=== PATIENT | female | born 1925 | race Caucasian/White ===

== ENCOUNTER 2016-07-20 16:02 | Emergency (ER) | payer MEDICARE, OTHER ==
[~2016-07-20] VITALS: Ht 165.1 cm; Wt 80.0 kg
[~2016-07-20 16:02] MED LIST: AMIODARONE 150 MG INJ ONE; EPINEPHrine 0.1 MG/ML SYG ONE; MAGNESIUM SULFATE 1 GM/100 ML D5W IVPB ONE; NA BICARBONATE 8.4% 50 ML SYG ONE
[2016-07-20 16:06] VITALS: Ht 165.1 cm; Wt 80.0 kg
[2016-07-20] MEDS ORDERED: SODIUM CHLORIDE 0.9% 1L BAG IV* STA (16:09)
[2016-07-20] MEDS ORDERED: NORepinephrine 8MG/250 ML (PMX 250 ML ONE (16:17)
[2016-07-20 16:41] LABS: ADD SCAN DIFF NO
[2016-07-20 16:43] LABS: ABNORMAL IP MESSAGE 1; HEMATOCRIT 31.2 % (37.0-47.0); HEMOGLOBIN 8.3 g/dl (12.0-16.0); MEAN CORPUSCULAR HEMOGLOBIN 24.4 pg (29.0-33.0); MEAN CORPUSCULAR HGB CONC 26.6 g/dl (32.0-37.0); MEAN CORPUSCULAR VOLUME 91.8 fl (82.0-101.0); PLATELET COUNT 68 10^3/UL (140-415); RED CELL DISTRIBUTION WIDTH 20.6 % (11.5-14.5); WHITE BLOOD COUNT 14.7 10^3/ul (4.8-10.8)
[2016-07-20] MEDS ORDERED: ATOR10TA65 PO (16:47)
[2016-07-20] MEDS ORDERED: PROPOFOL 100 ML IV STA (16:48)
[2016-07-20] MEDS ORDERED: DEXA4TAB PO (16:48)
[2016-07-20] MEDS ORDERED: FLUD0.1T10 PO (16:49)
--- NOTE | 2016-07-20 16:49 | RADRPT ---
PROCEDURE: XR Chest. CLINICAL INDICATION: Cough. Sepsis. TECHNIQUE: Single frontal view. COMPARISON: None. FINDINGS: The endotracheal tube is in satisfactory position with the tip 4 cm above the jean-claude. There is a le ft-sided dual lead permanent pacemaker with leads in the right atrium and right ventricle. There is extensive bilateral pulmonary airspace and interstitial disease consistent with pulmonary edema wit h right worse than left. The heart is mildly enlarged. There is calcification in the aorta consistent with atherosclerosis. There is no pleural effusion. There is no pneumothorax. IMPRESSION: 1. Endotracheal tube in satisfactory position. 2. Permanent pacemaker. 3. Pulmonary edema with right worse than left. 4. Mild cardiomegaly and atherosclerosis. RPTAT: QQ .Alexsander Eaton MD, MD Date Time Electronically viewed and signed by .Alexsander Eaton MD, on 07/20/2016 16:49 .R/
[2016-07-20] MEDS ORDERED: LORA0.5T PO (16:50)
[2016-07-20] MEDS ORDERED: KRIL500C PO (16:50)
[2016-07-20] MEDS ORDERED: MECL-77 PO (16:51)
[2016-07-20] MEDS ORDERED: METO-448 PO (16:51)
[2016-07-20] MEDS ORDERED: MIDO10TA PO (16:52)
[2016-07-20 16:53] LABS: INR 4.21; PROTIME 41.3 Sec (12.2-14.2); PT RATIO 3.2
[2016-07-20] MEDS ORDERED: MIRT7.5T8 PO (16:53)
[2016-07-20 16:54] LABS: ALBUMIN 3.2 g/dl (3.3-4.9); PARTIAL THROMBOPLASTIN TIME 52.9 Sec (25.0-35.0)
[2016-07-20] MEDS ORDERED: MULT-105 PO (16:54)
[2016-07-20 16:55] LABS: POTASSIUM 4.6 mmol/L (3.5-5.1)
[2016-07-20] MEDS ORDERED: WARF1TAB47 PO (16:55)
[2016-07-20] MEDS ORDERED: RANI150T5 PO (16:55)
[2016-07-20 16:57] LABS: BILIRUBIN,INDIRECT 0.1 mg/dl (0-1.1); BILIRUBIN,TOTAL 0.1 mg/dl (0.2-1.3); CREATININE 1.85 mg/dl (0.44-1.00)
[2016-07-20 16:58] LABS: ALBUMIN/GLOBULIN RATIO 0.8; CALCIUM 8.4 mg/dl (8.4-10.2); TOTAL PROTEIN 7.2 g/dl (6.1-8.1)
--- NOTE | 2016-07-20 17:09 | RADRPT ---
PROCEDURE: Noncontrast CT Head. CLINICAL INDICATION: Sepsis. TECHNIQUE: Noncontrast CT of the head was obtained. The administered radiation dose was CTDI vol = 42.02 mGy, DLP = 720.23 mGy-cm. One or more of the following dose reduction techniques were used: Au tomated exposure control, Adjustment of the mA and/or kV according to patient size, or Use of iterat morelia reconstruction technique. COMPARISON: There are no similar studies submitted for comparison. FINDINGS: There is mild to moderate generalized cerebral volume loss. There is mild periventricular hypoattenuation suggesting chronic microvascular ischemic changes. The re are chronic bilateral basal ganglia lacunar infarctions. There are mild to moderate vascular calc ifications within the intracranial carotid arteries. There is no loss of myles-white differentiation to suggest acute territorial infarction. There is no acute intracranial hemorrhage or extra-axial fluid collection. There is no mass effect. No midline shift is identified. The patient is status post bilateral lens surgery. There is minimal bilateral ethmoid sinus mucosal thickening. No destructive osseous lesion is identified. IMPRESSION: 1. No acute intracranial hemorrhage or extra-axial fluid collection. 2. Mild generalized cerebral volume loss. 3. Minimal chronic microvascular ischemic changes. 4. Chronic bilateral basal ganglia lacunar infarctions. Further findings as detailed above. RPTAT: PP .Juan Cesar MD, Date Time Electronically viewed and signed by .Juan Cesar MD, on 07/20/2016 17:09 .F/
[2016-07-20 17:12] LABS: TROPONIN-I 3.52 ng/ml (0.00-0.12)
[2016-07-20 17:44] LABS: AADO2 Arterial 587.7 mmHg (7.0-24.0); Allen Test ACCEPTAB; Arterial Base Excess -24.1 mmol/L (-3.0-3); Arterial COHb 0.6 % (0.0-3.0); Arterial Fraction of Oxyhgb 86.2 % (93.0-99.0); Arterial HCO3 7.3 mmol/L (22.0-26.0); Arterial MetHb 0.4 % (0.0-1.5); Arterial Total Hemglobin 8.9 g/dl (12.0-18.0); MODE VENT - AC
[2016-07-20 17:49] LABS: ANISOCYTOSIS 2+; HYPOCHROMASIA 1+; LYMPHOCYTES # 4.3 10^3/ul (0.8-2.9); MICROCYTOSIS 1+; MONOCYTE # 0.4 10^3/ul (0.3-0.9); OVALOCYTES 2+; POIKILOCYTOSIS 2+
[2016-07-20 17:50] LABS: PLATELET ESTIMATE PLT APPEAR DECREASED
[2016-07-20] MEDS ORDERED: NORepinephrine 8MG/250 ML (PMX 250 ML IV SCH (18:00)
[2016-07-20] MEDS ORDERED: SODIUM BICARBONATE (IV ADD) 150 MEQ in DEXTROSE 5% 1,000 ML IV SCH (18:00)
[2016-07-20] MEDS ORDERED: NA BICARBONATE 8.4% 50 ML SYG IV ONE (18:00)
--- NOTE | 2016-07-20 18:14 | ERA ---
ER Documentation Chief Complaint Date/Time DATE: 07/20/16 TIME: 18:07 Chief Complaint BIBA FOR CARDIAC ARREST HPI History unobtainable from patient secondary to clinical condition. This is an 89-year-old female who presents to the emergency room after being brought in by ambulance for out of hospital cardiac arrest. This patient was found to be in pulseless V. tach at her [facility], she was defibrillated, and subsequently went into ventricular fibrillation. The patient was defibrillated again, and was given 1 mg of epinephrine. The patient was transported to the emergency room for further evaluation. When I evaluated this patient initially I did see this patient who was unresponsive, had a Keens tube and had her face covered in vomit. ROS All systems reviewed and are negative except as per history of present illness. Medications Home Meds Reported Medications Warfarin Sodium* (Coumadin*) 1 Mg Tablet, 1 MG PO DAILY, TAB 07/20/16 Ranitidine Hcl* (Ranitidine Hcl*) 150 Mg Tablet, 150 MG PO DAILY, #30 TAB 07/20/16 Multivitamin with Minerals (Multivitamins with Minerals) 1 Each Tablet, 1 EACH PO DAILY, TAB 07/20/16 Mirtazapine* (Mirtazapine*) 7.5 Mg Tablet, 7.5 MG PO HS, TAB 07/20/16 Midodrine* (Midodrine*) 10 Mg Tablet, 10 MG PO QID, TAB 07/20/16 Metoprolol Tartrate* (Lopressor*) 25 Mg Tab, 25 MG PO BID, #60 TAB 07/20/16 Meclizine Hcl* (Meclizine Hcl*) 25 Mg Tablet, 25 MG PO Q8H Y for DIZZINESS, TAB 07/20/16 Lorazepam* (Lorazepam*) 0.5 Mg Tablet, 0.5 MG PO HS Y for ANXIETY, TAB 07/20/16 Krill Oil (KRILL OIL) 500 Mg Capsule, 500 MG PO DAILY, CAP 07/20/16 Fludrocortisone* (Fludrocortisone*) 0.1 Mg Tablet, 0.1 MG PO DAILY, TAB 07/20/16 Dexamethasone* (Dexamethasone*) 4 Mg Tablet, 20 MG PO EVERY WEEK, TAB 07/20/16 Atorvastatin Calcium (Atorvastatin Calcium) 10 Mg Tablet, 10 MG PO QHS, #30 TAB 07/20/16 Allergies Allergies: Coded Allergies: codeine (Unverified Allergy, Unknown, 07/20/16) iodine (Unverified Allergy, Unknown, 07/20/16) PMhx/Soc Smoking Status: Unknown if ever smoked Physical Exam Vitals Vital Signs Date Time Temp Pulse Resp B/P Pulse Ox O2 Delivery O2 Flow Rate FiO2 07/20/16 17:19 60 29 95/44 94 Mechanical Ventilator 07/20/16 16:45 62 23 93/55 98 Mechanical Ventilator 07/20/16 16:39 62 21 100 100 07/20/16 16:09 Bag Valve Mask 07/20/16 16:06 98.0 63 0 66/46 97 Physical Exam INITIAL VITAL SIGNS: Reviewed by me GENERAL: The patient is in severe distress, being ventilated via bag valve mask , dry vomiting on patient's face. HEENT: Fixed dilated pupils NECK: C-spine is soft and supple, there is no meningismus. There is no cervical lymphadenopathy. LUNGS: Clear to auscultation bilaterally. There are no rales, wheezes or rhonchi. HEART: Irregularly irregular rhythm no murmurs, clicks, rubs or gallops. ABDOMEN: Soft, non-tender, non-distended. There are bowel sounds in all four quadrants. No rebound or guarding. EXTREMITIES: There is no peripheral cyanosis or edema. No focal swelling or erythema. NEUROLOGICAL: The patient moves all four extremities with 5/5 strength. Cranial nerves II - XII are intact. Normal gait. Alert and oriented SKIN: There is no apparent rash or petechiae. HEME/LYMPHATIC: There is no evidence of excessive bruising or lymphedema. PSYCHIATRIC: The patient does not appear anxious or depressed. Result Diagram: 07/20/16 1605 07/20/16 1605 Results 24 hrs Laboratory Tests Test 07/20/16 16:05 07/20/16 16:07 07/20/16 16:09 White Blood Count 14.710^3/ul Red Blood Count 3.4010^6/ul Hemoglobin 8.3g/dl Hematocrit 31.2% Mean Corpuscular Volume 91.8fl Mean Corpuscular Hemoglobin 24.4pg Mean Corpuscular Hemoglobin Concent 26.6g/dl Red Cell Distribution Width 20.6% Platelet Count 6810^3/UL Mean Platelet Volume fl Neutrophils % 68.0% Lymphocytes % 29.0% Monocytes % 3.0% Neutrophils # 10.010^3/ul Lymphocytes # 4.310^3/ul Monocytes # 0.410^3/ul Platelet Estimate PLT APPEAR DECREASED Large Platelets FEW Hypochromasia 1+ Poikilocytosis 2+ Anisocytosis 2+ Microcytosis 1+ Macrocytosis 1+ Ovalocytes 2+ Prothrombin Time 41.3Sec Prothrombin Time Ratio 3.2 INR International Normalized Ratio 4.21 Activated Partial Thromboplast Time 52.9Sec Sodium Level 135mmol/L Potassium Level 4.6mmol/L Chloride Level 107mmol/L Carbon Dioxide Level 11mmol/L Anion Gap 22 Blood Urea Nitrogen 32mg/dl Creatinine 1.85mg/dl Glucose Level 350mg/dl Lactic Acid Level 12.2mmol/L Calcium Level 8.4mg/dl Total Bilirubin 0.1mg/dl Direct Bilirubin 0.00mg/dl Indirect Bilirubin 0.1mg/dl Aspartate Amino Transf (AST/SGOT) 69IU/L Alanine Aminotransferase (ALT/SGPT) 38IU/L Alkaline Phosphatase 104IU/L Troponin I 3.520ng/ml Total Protein 7.2g/dl Albumin 3.2g/dl Globulin 4.00g/dl Albumin/Globulin Ratio 0.80 Lipase 142U/L Bedside Glucose 320mg/dL Blood Gas Specimen Source Blood arterial Arterial Blood Date Drawn 07/20/2016 5:38:47 PM Arterial Blood pH (Temp corrected) 6.907 Arterial Blood pCO2 (Temp correct) 37.5mmhg Arterial Blood pO2 (Temp corrected) 87.8mmHG Arterial Blood HCO3 7.3mmol/L Arterial Blood Base Excess -24.1mmol/L Arterial Blood Oxygen Saturation 87.1mmHG Porfirio Test ACCEPTAB Arterial Blood Gas Puncture Site LB Arterial Blood Carboxyhemoglobin 0.6% Arterial Blood Methemoglobin 0.4% Blood Gas A-a O2 Differential 587.7mmHg Oxyhemoglobin Percent 86.2% Total Hemoglobin 8.9g/dl Blood Gas Temperature 37.0C Blood Gas Respiration Rate 16.0 Blood Gas Actual Respiration Rate 16 Blood Gas Modality VENT - AC FiO2 100.0% Blood Gas Tidal Volume 500.0mL Blood Gas Critical Value Read Back MIKI Massey Blood Gas Notified Whom [facility] Blood Gas Notified Time 07/20/2016 5:44:26 PM Current Medications Medications (Trade) Dose Ordered Sig/Kye Route PRN Reason Start Time Stop Time Status Last Admin Dose Admin Sodium Chloride 2480 ml 2,480 ml BOLUS OVER 2 HOURS STAT IV* 07/20/16 16:09 07/20/16 16:10 DC 07/20/16 16:20 Norepinephrine 250 ml @ ud STK-MED ONCE .ROUTE 07/20/16 16:17 07/20/16 16:18 DC Norepinephrine 16 mg/Dextrose 500 ml @ 1.87 mls/hr TITRATE IV 07/20/16 17:00 Propofol 100 ml @ 2.4 mls/hr ONCE STAT IV 07/20/16 16:48 07/22/16 10:27 Norepinephrine (Levophed) 250 ml @ 1.875 mls/ hr TITRATE IV 07/20/16 18:00 07/20/16 17:39 Sodium Bicarbonate 50 ml 50 ml ONCE ONCE IV 07/20/16 18:00 07/20/16 18:01 DC 07/20/16 18:04 Sodium Bicarbonate/ Dextrose (Na Bicarb/D5W) 1,150 ml @ 150 mls/hr Q7H40M IV 07/20/16 18:00 Procedures/MDM EKG: Rate/Rhythm: Right bundle branch block, QRS, ST, T-waves: [No changes consistent w/ acute ischemia] Impression: Right bundle branch block EKG: #2 Rate/Rhythm: [Normal Sinus Rhythm] QRS, ST, T-waves: [No changes consistent w/ acute ischemia] Impression: Bifascicular block Chest X-ray 1V Interpreted by me: Soft Tissue: ET tube in correct position, pulmonary edema Bones: No acute abnormalities Mediastinum/Cardiac Silhouette/Lungs: [No acute abnormalities] CT brain without: 1. No acute intracranial hemorrhage or extra-axial fluid collection. 2. Mild generalized cerebral volume loss. 3. Minimal chronic microvascular ischemic changes. 4. Chronic bilateral basal ganglia lacunar infarctions. This 89-year-old female presents to the emergency room after an out of hospital cardiac arrest. This patient was found to be in a pulseless V. tach, and was defibrillated. She then went into a ventricular fibrillation. She was defibrillated and given 1 mg of epinephrine and transported to the emergency room. When I evaluated her I saw patient that was unresponsive with a Sulphur tube for an airway. The patient did have dry vomit on her face. I did establish a definitive airway with an endotracheal tube. Please see intubation note. The patient was hypotensive on my evaluation, a central line was placed in the right femoral vein. Please see central line note. The patient did have a bifascicular block on her EKG here in the emergency room. I did call our utilization coordinator transmission repairer Dr. Beltre. I did show her the EKG. There is no need for Belt Builder Helper activation at this time. Hypothermia protocol was initiated. This patient's lab work does show severe metabolic acidosis with a pH of 6.9, was subsequently started on a bicarb drip.. Her troponin is elevated. The patient had a CT of her head as well which does not show any acute bleeds. This patient was given 325 mg of aspirin via her OG tube. The patient was started on levo fed, and propofol for sedation. Her family members are at bedside and I have relayed this patient's hospital course with them. This patient will be placed for admission at this time to the intensive care unit under the care of Dr. Bose. Endotracheal Intubation by me: Pre assessment performed. See preceding note for details. Pre-oxygenation performed with 100% oxygen RSI: Performed w/o complication or hypoxic events. Medications as ordered. Blade: [Mac 4] ET Tube: 7] cm Depth: 23 cm at the lip Intubation confirmed by colorimetric CO2, equal breath sounds, quiet over the stomach. Chest X-ray 1V Interpreted by me 2 cm above the jean-claude ET tube. Normal soft tissue, No pneumothorax. Central Line Placement by me: Patient consented, sterilely draped, full prep, gown, glove, mask, time out performed. Anesthesia: 1% lidocaine locally Location: Right femoral vein Device: Multiple lumen Technique: Seldinger technique. Secured with suture. Results: Venous return from all ports with easy saline flush. No complications. Guide wire retrieved and disposed of. [ED Ultrasound: Central line placed by me using concurrent ultrasound guidance. Real time image archived in the medical record confirms vascular anatomy. [Chest X-ray 1V Interpreted by me: Central line in SVC, Normal soft tissue, No evidence of pneumothorax.] Departure Diagnosis: Primary Impression: Cardiac arrest Additional Impressions: Respiratory failure requiring intubation Non-ST elevation FL (NSTEMI) Renal insufficiency Metabolic acidosis Condition: Critical SHIRA LIVINGSTON DO Jul 20, 2016 18:14
[2016-07-20] MEDS ORDERED: ASPIRIN 325 MG TAB NGT ONE (18:30)
[2016-07-20] MEDS ORDERED: SODIUM CHLORIDE 0.9% 500 ML BAG IV* STA ×2 (18:32→18:36)
[2016-07-20] MEDS ORDERED: VECURONIUM 100 MG in DEXTROSE 5% 100 ML IV ONE (18:36)
[2016-07-20] MEDS ORDERED: INSULIN HUMAN REGULAR 100 UNIT in SOD CHLORIDE 0.9% 99 ML IV SCH (18:40)
[2016-07-20] MEDS ORDERED: DEXTROSE 50% 50 ML SYRINGE IV PRN ×2 (19:00)
[2016-07-20] MEDS ORDERED: VANCOMYCIN IV PER PHARMACY XX SCH (19:00)
[2016-07-20] MEDS ORDERED: ACCU-CHEK XX SCH (19:00)
[2016-07-20] MEDS ORDERED: VECURONIUM 10 MG VIAL IV SCH (19:00)
[2016-07-20] MEDS ORDERED: PHYTONADIONE 10 MG in DEXTROSE 5% 50 ML IVPB ONE (19:00)
[2016-07-20] MEDS ORDERED: PANTOPRAZOLE IV 80 MG in SOD CHLORIDE 0.9% 100 ML IV SCH (19:00)
[2016-07-20] MEDS ORDERED: SOD CHLORIDE 0.9% 1,000 ML IV SCH (19:00)
[2016-07-20] MEDS ORDERED: CEFTRIAXONE 1 GM/50 ML (PMX) 50 ML IVPB ONE (19:30)
[2016-07-20 19:42] LABS: AADO2 Arterial 606.2 mmHg (7.0-24.0); Allen Test ACCEPTAB; Arterial Base Excess -22.1 mmol/L (-3.0-3); Arterial COHb 0.2 % (0.0-3.0); Arterial Fraction of Oxyhgb 81.2 % (93.0-99.0); Arterial HCO3 9.1 mmol/L (22.0-26.0); Arterial MetHb 0.7 % (0.0-1.5); Arterial Total Hemglobin 9.1 g/dl (12.0-18.0); Blood Gas Low PEEP Setting 0 cmH2O; MODE VENT - AC
--- NOTE | 2016-07-20 19:48 | HP ---
DATE OF ADMISSION: 07/20/2016 PRESENTING COMPLAINT: Cardiac arrest. HISTORY OF PRESENT ILLNESS: Ms. Morillo is an 89-year-old female with a past medical history of hypotension as well as atrial fibrillation on Coumadin at home who was brought in by EMS after she became unresponsive and her caregiver had begun CPR on her. Per her niece who is at the bedside, the patient has been chronically wheelchair bound for the last couple months and she is being cared for exclusively by a caregiver who was with her today when all of a sudden she became unresponsive. The exact circumstances on her becoming unresponsive are not clear, but her niece reports that the patient did not fall. She did not hit her head. Apparently, the caregiver started CPR before EMS got there. When EMS got there, she was in ventricular fibrillation arrest. They did CPR via ACLS as protocol and they had return of spontaneous circulation. In the emergency room, her airway was secured by endotracheal intubation. She was reviewed with the [facility] metal weigher who determined that she did not need meet criteria for emergent angiogram at this time. She is now on the hypothermia protocol and is being admitted for further management. Of note is that there has been significant abnormalities noted in her lab work, under which is the: 1. Lactic acid of 12.2. 2. A CO2 of 11. 3. Elevated troponin of 3.5. 4. INR of 4.21. PAST MEDICAL HISTORY: As above. PAST SURGICAL HISTORY: None. ALLERGIES: 1. CODEINE. 2. IODINE. SOCIAL HISTORY: Elderly female, clinically wheelchair bound. Per family, no alcohol or illicit drug use. REVIEW OF SYSTEMS: Unobtainable. FAMILY HISTORY: Noncontributory. PHYSICAL EXAMINATION: VITAL SIGNS: At this time, she is under hypothermia protocol, but her core temperature is still 98.7. She is sedated with propofol. Pulse is 60, respirations are 30 on the ventilator with FIO2 of 100%. Blood pressure on the low side at 89/42, and has been started on Levophed. HEENT: Head is normocephalic. No evidence of acute trauma. Her pupils are quite sluggish, but equal. She is endotracheally intubated. CHEST: Coarse breath sounds bilaterally, reduced in the bases. CARDIOVASCULAR: She is not tachycardic. Systolic murmur noted. ABDOMEN: Soft, nondistended. However, NG-tube is profusely draining bloody discharge. Normoactive bowel sounds. EXTREMITIES: Negative for edema, but the patient has diffuse and severe widespread ecchymosis, likely secondary to chronic bleeding from Coumadin use on her skin. NEUROLOGIC: The patient is unresponsive. LABORATORY VALUES: Pertinent lab findings are lactic acid of 12.2. Glucose level of 350, creatinine of 1.85, BUN of 32, anion gap of 22, carbon dioxide of 11. Troponin of 3.5. Elevated AST of 69. Lipase is normal. Leukocytosis of 14,000; hemoglobin of 8.3, hypochromia and microcytosis, and a low platelet count of 68. INR is 4.21. PT and aPTT are 41.3 and 52.9. IMAGING: CT brain did not show any acute bleed, but chronic microvascular ischemic changes and chronic bilateral basal ganglia infarcts. A chest x-ray shows ET tube in satisfactory position, a permanent pacemaker in place. Pulmonary edema, right greater than left, and cardiomegaly and atherosclerosis. EKG: Showed atrial fibrillation. IMPRESSION: An 89-year-old female status post cardiac arrest, managed as follows:. 1. Cardiac arrest with return of spontaneous circulation. 2. Severe sepsis with lactic acidosis. Source is not quite clear now. However , evidence strongly points to a possible aspiration, which could have precipitated the original cardiac arrest. 3. Chronic atrial fibrillation. 4. Acute coagulopathy with INR of 4, thrombocytopenia with platelet count of 68. 5. Non-ST elevation myocardial infarction, which also could have precipitated cardiac arrest. 6. Ventilator dependent for respiratory failure, now ventilator dependent secondary to cardiac arrest. 7. Acute renal insufficiency, rule out chronic kidney disease. 8. Acute metabolic acidosis. 9. Chronic hypochromic anemia. 10. Prior bilateral basal ganglia strokes. 11. Status post pacemaker placement. 12. Pulmonary congestion, cannot rule out congestive heart failure. 13. Uncontrolled diabetes mellitus. 14. Acute gastrointestinal bleed. PLAN: 1. The patient is to be admitted to the intensive care unit. Continued on hypothermia protocol. 2. In the interim, we will begin broad spectrum antibiotics. Sent for cultures. 3. Also serial electrolytes monitoring and replacements as indicated. 4. Will correct coagulopathy with vitamin K and fresh frozen plasma, and also transfuse 1 unit of platelets. 4. Continue NG tube to intermittent suction. Leave patient n.p.o. Start intravenous PPI therapy with Protonix drip. 5. For now, we will also institute about the insulin drip for her hyperglycemia and check blood sugars every hour. 6. Continue pressor support. Continue ventilator management. 7. I will obtain consults with pulmonary, cardiology, and palliative care. She will likely need infectious disease input also at some point, as well as GI. 8. I have spoken with the daughter in detail. Prognosis is extremely poor. I recommend that the patient be made a DO NOT RESUSCITATE at least. She is going to try to retrieve patient's advanced directive from home. 9. Prophylaxis. She is not a candidate for SCDs because of her diffuse ecchymosis and she is very coagulopathic, but she will be on Protonix drip as well. Evaluation time has been more than an hour and a half. Dictated By: DAEVY AHUMADA MD, BA/TIFFANY Conf#: [id number] DID#: [id number] MTDD
[2016-07-20 20:30] LABS: ADD SCAN DIFF NO
[2016-07-20] MEDS ORDERED: VECURONIUM 10 MG VIAL IV ONE (20:30)
[2016-07-20 20:37] LABS: ABNORMAL IP MESSAGE 1; HEMOGLOBIN 7.9 g/dl (12.0-16.0); MEAN CORPUSCULAR HEMOGLOBIN 24.9 pg (29.0-33.0); MEAN CORPUSCULAR HGB CONC 26.3 g/dl (32.0-37.0); MEAN CORPUSCULAR VOLUME 94.6 fl (82.0-101.0); PLATELET COUNT 77 10^3/UL (140-415); RED BLOOD COUNT 3.17 10^6/ul (4.20-5.40); RED CELL DISTRIBUTION WIDTH 20.7 % (11.5-14.5); WHITE BLOOD COUNT 11.4 10^3/ul (4.8-10.8)
[2016-07-20 20:53] LABS: INR 5.72; PROTIME 52.7 Sec (12.2-14.2); PT RATIO 4.1
[2016-07-20 20:54] LABS: ALBUMIN 2.2 g/dl (3.3-4.9)
[2016-07-20 20:55] LABS: POTASSIUM 3.5 mmol/L (3.5-5.1)
[2016-07-20 20:57] LABS: ALBUMIN/GLOBULIN RATIO 0.64; CREATININE 1.79 mg/dl (0.44-1.00); TOTAL PROTEIN 5.6 g/dl (6.1-8.1)
[2016-07-20 20:58] LABS: PHOSPHORUS 7.4 mg/dl (2.5-4.9)
[2016-07-20 20:59] LABS: MAGNESIUM 2.4 mg/dl (1.7-2.5)
[2016-07-20] MEDS ORDERED: INSULIN ASPART [NOVOLOG] 3 ML PEN SC SCH (21:00)
[2016-07-20] MEDS ORDERED: VANCOMYCIN 1.5 GM in SOD CHLORIDE 0.9% 250 ML IVPB ONE (21:00)
[2016-07-20 21:18] LABS: TROPONIN-I 5.11 ng/ml (0.00-0.12)
[2016-07-20 21:44] LABS: ANISOCYTOSIS 2+; BURR CELLS 2+; HYPOCHROMASIA 1+; LYMPHOCYTES # 0.9 10^3/ul (0.8-2.9); MONOCYTE # 0.2 10^3/ul (0.3-0.9); NEUTROPHIL # 8.7 10^3/ul (1.6-7.5); OVALOCYTES 2+; POIKILOCYTOSIS 2+
[2016-07-20 21:45] LABS: PLATELET ESTIMATE PLT APPEAR DECREASED
[2016-07-21 00:06] LABS: CK-MB 15.8 ng/ml (0.0-2.4)
[2016-07-21 00:14] LABS: TROPONIN-I 5.57 ng/ml (0.00-0.12)
[2016-07-21 00:25] LABS: Allen Test ACCEPTAB; Arterial COHb 0.3 % (0.0-3.0); Arterial MetHb 0.5 % (0.0-1.5); Arterial Total Hemglobin 9.2 g/dl (12.0-18.0); MODE VENT - AC
[2016-07-21 00:38] LABS: AADO2 Arterial 654.5 mmHg (7.0-24.0); Arterial Base Excess -18.9 mmol/L (-3.0-3); Arterial Fraction of Oxyhgb 72.7 % (93.0-99.0)
[2016-07-21] MEDS ORDERED: DOPamine-D5W 1.6 MG/ML 250 ML IV SCH (01:55)
[2016-07-21 02:36] VITALS: BP 53/42; PULSE 60; TEMP 91
[2016-07-21 03:00] VITALS: RESP 26
[2016-07-21] MEDS ORDERED: PHENYLephrine 20MG IN 250 ML 250 ML IV PRN (03:00)
[2016-07-21] MEDS ORDERED: VASOPRESSIN 60 UNIT in DEXTROSE 5% 60 ML IV SCH (03:02)
[2016-07-21] MEDS ORDERED: PANTOPRAZOLE 40 MG INJ IV SCH (06:00)
--- NOTE | 2016-07-21 06:04 | EN ---
Date/Time of Note Date/Time of Note DATE: 07/21/16 TIME: 05:57 ER Progress Note The patient is admitted and awaiting for ICU bed, s/p cardiac arrest, s/p v. fib , acute respiratory failure requiring intubation, acute non-ST elevation GA ( NSTEMI). I was asked by the nurse to attend the patient because she went to a systole. CPR was started immediately. She was in a systole, then v fibrillation when she was defibrillated multiple times. She remains in ventricular fibrillation. The code started at 3:09 AM and ended at 3:39 AM Please see the CODE BLUE documentation form for complete information Critical Care: Time: 35 minutes excluding all billable procedures. Treatments/Evaluations: Close monitoring and treatment of unstable vital signs, cardiorespiratory, and neurologic status, while maintaining tight balance of fluid, respiratory, and cardiac interventions. Cardiopulmonary Resuscitation by me: See code documentation for specific details. ACLS and BLS were performed with high quality chest compressions and minimal interruptions. Reversible causes were assessed and treated. Diagnostic impression: #1 status post asystole #2 status post v fibrillation Disposition: patient ALTAGRACIA CUI MD Jul 21, 2016 06:04
[2016-07-21] MEDS ORDERED: CEFEPIME 1GM/50 ML (PMX) 50 ML IVPB SCH (09:00)
[2016-07-22] MEDS ORDERED: VANCOMYCIN 1 GM in NS 250 ML IVPB SCH (10:00)
--- NOTE | 2016-07-24 15:12 | DES ---
DATE OF ADMISSION: 07/20/2016 DATE OF : 07/21/2016 DATE OF : 07/21/2016 FINAL DIAGNOSES: 1. Status post cardiac arrest. 2. Severe sepsis with lactic acidosis secondary to possible aspiration. 3. Chronic atrial fibrillation. 4. Acute coagulopathy with thrombocytopenia. 5. Non-ST elevation myocardial infarction which could also have precipitated cardiac arrest. 6. Ventilator-dependent respiratory failure secondary to cardiac arrest. 7. Acute renal insufficiency, rule out chronic kidney disease. 8. Acute metabolic acidosis. 9. Chronic hypochromic anemia. 10. Prior bilateral basal ganglia stroke. 11. Status post pacemaker. 12. Cannot rule out congestive heart failure. 13. Uncontrolled diabetes mellitus. 14. Acute gastrointestinal bleed. CONSULTATION: Consults on the case were multiple; however, the patient was never seen because she p assed away prior to their review HOSPITALIZATION COURSE: This is a patient with multiple medical problems as summarized above, who w as chronically wheelchair bound, was cared for with a caregiver at home by her family. She was brou ght in after she was found to have slumped in her wheelchair. She was found to have cardiac arrest and she was resuscitated in the field by EMS with a return of spontaneous circulation and then broug ht to the emergency room where she was endotracheally intubated and put on a ventilator. The patien t had a poor prognosis upon arrival. She was requiring pressor support, high oxygen requirement. I spoke with the daughter at the bedside. The family was to get together and determine what her code status was today; however, I reviewed the patient for about an hour and a half at about 6 p.m. and signed the patient off to my partner overnight and according to report, at about 3:09 in the morning , the patient again lost the pulse, was found to be in V-fib. For details of code blue notes, ti heaton review the emergency room doctor and nursing notes. The patient eventually for a short co urse of cardiac resuscitation. The preliminary cause of would be an acute cardiopulmonary arr est. Dictated By: DAVEY AHUMADA MD, BA/NTS Conf#: [id number] DID#: [id number]
== END 2016-07-21 03:39 | disposition expired ==
LOC: E/R 16:02
DX: I46.9 Cardiac arrest, cause unspecified (principal); J96.90 Respiratory failure, unspecified, unspecified whether with hypoxia or hypercapnia; I21.4 Non-ST elevation (NSTEMI) myocardial infarction; N28.9 Disorder of kidney and ureter, unspecified; E87.2 Acidosis; R40.2112 Coma scale, eyes open, never, at arrival to emergency department; R40.2212 Coma scale, best verbal response, none, at arrival to emergency department; R40.2312 Coma scale, best motor response, none, at arrival to emergency department
CPT/HCPCS: 31500; 36556; 36600; 51702; 70450; 71010; 80053; 82550; 82553; 82803; 82962; 83605; 83690; 83735; 84100; 84484; 85025; 85610; 85730; 86850; 86900; 86901; 87040; 92950; 93005; 94002; 94003; C9113; J0171; J0282; J0696; J1265; J1815; J2370; J3370; J3430; J3475; J7030; J7040; J7050; J7070; 36415; 76937; 96365; 96366; 96368; 96375